=== PATIENT | male | born 1995 ===

== ENCOUNTER 2019-09-09 17:46 | Day surgery (SDC) | payer OTHER ==
[~2019-09-09] VITALS: Ht 172.7 cm; Wt 88.5 kg
[2019-09-09 21:22] VITALS: BP 179/74; PULSE 59; TEMP 98.8
[2019-09-09 21:24] VITALS: BP 179/74; PULSE 18; TEMP 98.8
--- NOTE | 2019-09-09 21:30 | NUR ---
PT ADMITTED TO 350. TRANSFER FROM [facility]. PT ADMITTED WITH PENILE FRACTURE, AN ACCIDENTAL INJURY WHICH OCCURRED DURING COITUS. PT'S PENIS PURPLE, EDEMATOUS.
--- NOTE | 2019-09-09 22:00 | NUR ---
PT SEEN BY UROLOGIST.
[2019-09-10 00:05] VITALS: BP 142/74; PULSE 59; TEMP 98.6
[2019-09-10 03:39] VITALS: BP 127/63; PULSE 57; TEMP 98.1
[2019-09-10 07:31] VITALS: BP 132/71; PULSE 63; TEMP 98.1
--- NOTE | 2019-09-10 09:00 | NUR ---
Patient resting in bed at this time. Patient is alert and oriented, answers questions appropriately. Patient denies pain at this time. Patient does request to shower. INT site covered and supplies provided, patient showering independently.
--- NOTE | 2019-09-10 12:30 | NUR ---
Discharge teaching completed. Discussed MRI scheduled for tomorrow at 1400, and discharge instructions. Patient questions asked and answered. INT removed, catheter intact, hemostasis achieved. Patient escorted to ED entrance, where he entered a private vehicle.
--- NOTE | 2019-09-10 13:51 | NUR ---
Plan: To return home with June [phone] as EMR and care support. Patient denied having a DPOA and declined one at this time. He resides in [facility]. Assess: SW met with patient at his bedside. Patient denied the use of DMR's and reported that his PCP is Dr. Kasper, with no upcoming appointments Patient reported that he gets his medications from [facility], and sometimes [facility] with no concerns. Patient declined any needs at this time. Action: No other concerns noted at this time. Patient was educated about community resources.
== END 2019-09-10 12:30 | disposition home or self-care (01) ==
LOC: SDCO 17:46 → JCC 18:48 → SURG 18:53 → SDCO 09-10 12:30
DX: S39.848A Other specified injuries of external genitals, initial encounter (principal); X50.9XXA Other and unspecified overexertion or strenuous movements or postures, initial encounter; Y93.89 Activity, other specified
CPT/HCPCS: OP; G0378; G0379

== ENCOUNTER → 2019-09-11 | Outpatient (CLI) | payer OTHER | LOC: COL.RAD 14:41 | DX: S39.840A Fracture of corpus cavernosum penis, initial encounter (principal) ==